=== PATIENT | female | born 1985 | race Caucasian/White ===

== ENCOUNTER 2017-05-30 09:20 | Outpatient (CLI) | payer MEDICAID ==
[2017-05-30 09:36] VITALS: BP 103/57; PULSE 77; RESP 20
[2017-05-30] MEDS ORDERED: PRENAT PO (09:57)
--- NOTE | 2017-05-30 10:16 | RADRPT ---
PROCEDURE: US OB biophysical profile. CLINICAL INDICATION: Evaluate well-being, history of oligohydramnios TECHNIQUE: Multiple sonographic images of the pelvis were obtained. The images were reviewed on a PACS workstation. COMPARISON: None FINDINGS: There is a single viable intrauterine gestation. Oligohydramnios is noted with an HARIS = 6.6 cm. This is below the 2.5 percentile. Cardiac activity is present with 126 beats per minute. There is a vertex presentation. The placenta is anterior. Biophysical profile: movement 2/2 tone 2/2. breathing 2/2 HARIS 2/2 Total 05/04 IMPRESSION: 1. Single intrauterine gestation in cephalic presentation. 2. The biophysical profile is normal measuring 05/04. 3. Anterior placenta without evidence of previa or abruption. 4. Oligohydramnios. The amniotic fluid index is 6.6 cm. This has below the 2.5 percentile. RPTAT:AAJJ Physician Celeste Date Time Electronically viewed and signed by Physician Celeste on 05/30/2017 10:15 /
--- NOTE | 2017-05-30 12:22 | PN ---
Triage Information Date/Time Reason for visit: Oligohydramnios Weeks of Gestation 37 week /Para Diabetes: none Hypertention: none Objective Vital Signs Date Time Temp Pulse Resp B/P Pulse Ox O2 Delivery O2 Flow Rate FiO2 05/30/17 09:36 98.0 77 20 103/57 Room Air Heart Rate: 130's Contractions: None Exam Pelvic examination deferred Results/Medications Imaging Results HARIS 7.7 Assessment/Plan Biophysical profile 05/04 recommended IV hydration 1000 cc repeat For HARIS Notify of the Result MAURA AVINA MD May 30, 2017 12:22
[2017-05-30] MEDS ORDERED: LACTATED RINGER'S 1,000 ML IV ONE (13:00)
--- NOTE | 2017-05-30 15:03 | RADRPT ---
PROCEDURE: US OB. CLINICAL INDICATION: Low HARIS , pain TECHNIQUE: Transabdominal views of the pelvis are available for review. COMPARISON: 05/30/2017 FINDINGS: There is a single intrauterine gestation in a vertex position. The heart rate is noted at 925 bpm. The placenta is anterior. The cord insertion appears unremarkable. There is no evidence of hydronephrosis. The HARIS measures 7.8 cm. RPTAT: AA IMPRESSION: Borderline decreased HARIS. .Kris Penny MD, MD Date Time Electronically viewed and signed by .Kris Penny MD, MD on 05/30/2017 15:03 .S/
--- NOTE | 2017-05-30 16:11 | PN ---
Triage Information Date/Time Reason for visit: Oligohydramnios Weeks of Gestation 37WEEKS 5 DAYS /Para Diabetes: none Hypertention: none Objective Vital Signs Date Time Temp Pulse Resp B/P Pulse Ox O2 Delivery O2 Flow Rate FiO2 05/30/17 09:36 98.0 77 20 103/57 Room Air Heart Rate: 130's Heart Rate Comments CATEGORY 1 FH Contractions: None Assessment/Plan ADVISED HYDRATION ,FHR CATEGORY 1 RETURN AM TO REPEAT HARIS,BBP MAURA AVINA MD May 30, 2017 16:11
== END 2017-05-30 16:15 | disposition home or self-care (01) ==
LOC: OBT 09:20 → L-D 09:22 → OBT 16:15
PROVIDERS: ATTEND Obstetrics & Gynecology
DX: O41.03X0 Oligohydramnios, third trimester, not applicable or unspecified (principal); Z3A.37 37 weeks gestation of pregnancy
CPT/HCPCS: 36415; 76816; 76818; 96360; 96361; J7120; Z7500; G0463

== ENCOUNTER 2017-06-02 09:48 | Inpatient (IN) | payer MEDICAID ==
[~2017-06-02] VITALS: Ht 160 cm; Wt 70.4 kg
[~2017-06-02 09:48] MED LIST: PRENAT PO
[2017-06-02 09:56] VITALS: Ht 160 cm; Wt 70.4 kg
[2017-06-02 09:58] VITALS: BP 114/60; PULSE 93; RESP 18
--- NOTE | 2017-06-02 10:26 | RADRPT ---
PROCEDURE: OB ultrasound for biophysical profile CLINICAL INDICATION: Low HARIS TECHNIQUE: Multiple sonographic images of the pelvis were obtained. Transabdominal view of the gr avid uterus are available for review. The images were reviewed on a PACS workstation. COMPARISON: OB ultrasound 05/31/2017 FINDINGS: breathing movement = 2/2 tone = 2/2 motion = 2/2 HARIS = 2/2 HARIS = 7.0 cm Single live intrauterine with cardiac activity. heart rate equals 128 beats p er minute. Presentation is cephalic. The placenta is anterior, grade II. IMPRESSION: 1. Single viable intrauterine gestation. 2. Biophysical profile = 8/8. 3. HARIS = 7.0 cm, consistent with borderline oligohydramnios. RPTAT: KK .Gael Arizmendi MD, MD Date Time Electronically viewed and signed by .Gael Arizmendi MD, MD on 06/02/2017 10:25 .B/
--- NOTE | 2017-06-02 13:04 | TRIAGE ---
OB Triage Datetime Report Generated by CPN: 06/02/2017 13:03 Datetime: 06/02/2017 09:54 Assessment Type: Triage Maternal Assessment Level of Consciousness: Fully Conscious DTR's/Clonus: DTRs 2+; No Clonus Headache: Denies Blurred Vision: No Respiratory Effort: Unlabored; Regular Rhythm; Equal Expansion Breath Sounds, Left: Clear and Equal Breath Sounds, Right: Clear and Equal Nausea/Vomiting: Denies RUQ Epigastric Pain: Denies Lower Extremities Edema: None Degree: None Upper Extremities Edema: None Degree: None Facial Edema: None Fall Risk Assessment History of Falling: (0) No Secondary Diagnosis: (0) No Ambulatory Aid: (0) Bedrest/Nurse Assist IV Therapy: (0) No Gait: (0) Normal/Bedrest/Immobile Mental Status: (0) Oriented to Own Ability Fall Score: 0 Fall Risk Score Definition: No Risk: No action required Datetime: 06/02/2017 09:53 Time of Arrival: 06/02/2017 09:44 EGA: 37.5 Arrived By: Ambulatory Arrived From: Home Chief Complaint: PT HERE FOR F/U NST/BPP FOR OLIGIO Movement: Present Contractions: Denies/Absent Rupture of Membranes: Denies Vaginal Bleeding: None Vaginal Discharge: Denies Recent Sexual Intercouse: Denies Abdominal Trauma: Not Applicable Patient Complaints: None Time Provider Notified: 06/02/2017 12:00 Provider Notified: FABRICE Initial Plan: NST/BPP Datetime: 06/02/2017 09:50 Monitor Mode: External Monitor Mode: External US Datetime: 05/31/2017 12:06 Labor Evaluation Frequency: 0 Monitor Mode: External Pattern: Normal: <= 5 Contractions in 10 Minutes Resting Tone [place]: Relaxed Heart Rate FHR Baseline Rate: 130 Monitor Mode: External US FHR Baseline Changes: No Baseline Change Variability: Moderate 6-25 bpm Accelerations: 15X15 Decelerations: None Category: Category I Pain Assessment Pain Scale: 0 Pain Presence: None/Denies Pain Type: N/A Datetime: 05/31/2017 11:50 EGA: 37.3 Time Provider Notified: 05/31/2017 12:00 Provider Notified: FABRICE Datetime: 05/31/2017 11:45 Fall Score: 0 Fall Risk Score Definition: No Risk: No action required Datetime: 05/30/2017 09:44 Fall Score: 0 Fall Risk Score Definition: No Risk: No action required Datetime: 05/30/2017 09:43 EGA: 37.2
[2017-06-02] MEDS ORDERED: LACTATED RINGER'S 1,000 ML IV PRN (14:52)
[2017-06-02] MEDS ORDERED: MISOPROSTOL 200 MCG TAB PR PRN (15:00)
[2017-06-02] MEDS ORDERED: IBUPROFEN 600 MG TAB PO PRN (15:00)
[2017-06-02] MEDS ORDERED: METHYLERGONOVINE 0.2 MG INJ IM PRN (15:00)
[2017-06-02] MEDS ORDERED: AMPICILLIN 2 GM/NS (PMX) 100 ML IV ONE (15:00)
[2017-06-02] MEDS ORDERED: OXYTOCIN 30 UNITS/LR 500 ML IV SCH (15:00)
[2017-06-02] MEDS ORDERED: DINOPROSTONE 10 MG VAG SUPP VAG ONE (15:00)
[2017-06-02] MEDS ORDERED: CARBOPROST 250 MCG INJ IM PRN (15:00)
[2017-06-02] MEDS: LACTATED RINGER'S 1,000 ML IV SCH (15:00)
[2017-06-02] MEDS ORDERED: LIDOCAINE 1% (MPF) 30 ML INJ INJ PRN (15:00)
[2017-06-02] MEDS ORDERED: BUTORPHANOL 2 MG INJ IV PRN (15:00)
[2017-06-02] MEDS ORDERED: OXYTOCIN 30 UNITS/LR 500 ML IV PRN (15:00)
[2017-06-02 15:48] LABS: BASOPHILS % 0.4 % (0.0-2.0); EOSINOPHILS # 0.1 10^3/ul (0.0-0.5); EOSINOPHILS % 1.3 % (0.0-7.0); HEMATOCRIT 37.5 % (37.0-47.0); HEMOGLOBIN 12.4 g/dl (12.0-16.0); LYMPHOCYTES # 1.4 10^3/ul (0.8-2.9); LYMPHOCYTES % 16.8 % (15.0-51.0); MEAN CORPUSCULAR HEMOGLOBIN 28.4 pg (29.0-33.0); MEAN CORPUSCULAR HGB CONC 33.1 g/dl (32.0-37.0); MONOCYTE # 0.6 10^3/ul (0.3-0.9); NEUTROPHILS % 73.9 % (39.0-77.0); PLATELET COUNT 176 10^3/UL (140-415); RED BLOOD COUNT 4.36 10^6/ul (4.20-5.40); RED CELL DISTRIBUTION WIDTH 13.9 % (11.5-14.5); WHITE BLOOD COUNT 8.4 10^3/ul (4.8-10.8)
[2017-06-02 16:02] LABS: INR 0.86; PROTIME 11.7 Sec (12.2-14.2); PT RATIO 0.9
--- NOTE | 2017-06-02 17:24 | HP ---
Date/Time of Note Date/Time of Note DATE: 06/02/17 TIME: 17:15 OB - History Hx of Present Free Text/Dictation This is a 21 years old female admitted to the hospital at 37 weeks and 5 days due to low HARIS which barely has been going up with oral and IV hydration but returns lower-level the following day, perinatology consult recommended delivery since her cervix is not favorable pending for Cervidil induction Chief Complaint: 37 weeks and 5 days, low HARIS Estimated Due Date: Jun 23, 2017 : 4 Para: 3 Care: Limited Care Ultrasounds: Normal mid trimester US Obstetrical Complications: None Medical Complications: None Past Family/Social History * Past Medical, Surgical, Family and Obstetric Histories reviewed from chart. Rubella: immune RPR/VDRL: Negative GBS Status: Negative HBsAG: Negative OB Admission Exam Vital Signs Vital Signs Vital Signs Date Time Temp Pulse Resp B/P Pulse Ox O2 Delivery O2 Flow Rate FiO2 06/02/17 09:58 98.6 93 18 114/60 96 Room Air Physical Exam HEENT: WNL Heart: Rhythm Normal Lungs: Clear, Equal Abdomen: WNL Extremities: Normal Cervical Dilatation: None Effacement: 0% Station: -2 Membranes: Intact Heart Rate: 130's Decelerations: No Decelerations Varibility: Moderate Contractions on Admission: None Last 72 hours Lab Results CBC & BMP 06/02/17 15:00 MAURA AVINA MD Jun 02, 2017 17:24
[2017-06-02] MEDS: AMPICILLIN 1 GM/NS (PMX) 50 ML IV SCH ×2 (19:06→23:02)
[2017-06-03] MEDS: LACTATED RINGER'S 1,000 ML IV SCH ×3 (00:51→20:08)
[2017-06-03] MEDS ORDERED: MINERAL OIL LIGHT 10 ML VIAL TOP ONE (01:00)
[2017-06-03] MEDS: AMPICILLIN 1 GM/NS (PMX) 50 ML IV SCH ×5 (03:15→18:26)
[2017-06-03] MEDS ORDERED: DINOPROSTONE 10 MG VAG SUPP VAG ONE ×2 (04:30→09:00)
[2017-06-03] MEDS ORDERED: MINERAL OIL LIGHT 10 ML VIAL TOP PRN (10:30)
[2017-06-03] MEDS ORDERED: FENTAnyl 2MCG/ML-ROPIV 0.2% 100 ML ONE (13:04)
[2017-06-03] MEDS ORDERED: NALOXONE (0.4 MG/ML) INJ IV PRN (13:30)
[2017-06-03] MEDS: FENTAnyl 2MCG/ML-ROPIV 0.2% 100 ML BAG EPI SCH ×2 (13:51→18:30)
[2017-06-03] MEDS ORDERED: OXYTOCIN 30 UNITS/LR 500 ML IV SCH (15:30)
[2017-06-03] MEDS: OXYTOCIN 30 UNITS/LR 500 ML IV SCH ×2 (20:18→22:25)
--- NOTE | 2017-06-03 20:57 | LDN ---
Date/Time of Note Date/Time of Note DATE: 06/03/17 TIME: 20:53 Delivery Summary induced with multiple cervidil and pitocin for low HARIS normal vaginal delivery Weeks of Gestation 37w6d Placenta Delivered: Spontaneously Meconium: none Episiotomy: No Perineal laceration: 0 Anesthesia type: Epidural Estimated blood loss: 200 Sponge & Needle done & correct: Yes All needle counts correct: Yes Any foreign bodies felt in the: No Problems: Infant Delivery Information Sex Sex: male Apgars 1 Minute: 8 5 Minute: 9 Suctioning Nose & mouth suctioned at pipe: Yes Delee suction performed: No Umbilical Cord Umbilical cord with: 3 Vessels Cord presentations: nuchal cord Nuchal cord present X: 1 Cord Blood was obtained: Yes Mother & Baby Disposition Disposition Mom & Baby to Maternity; Good: Yes Mom transferred to: Other () Baby to NICU: No HARMEET MAGDALENO MD Jun 03, 2017 20:57
[2017-06-03 22:30] VITALS: BP 102/58; PULSE 58; RESP 18
[2017-06-03] MEDS ORDERED: OXYTOCIN 30 UNITS/LR 500 ML IV PRN (23:00)
[2017-06-03] MEDS ORDERED: OXYCODONE/ASPIRIN (4.88/325) TAB PO PRN ×2 (23:00)
[2017-06-03] MEDS ORDERED: WITCH HAZEL/GLYCERIN PAD PR PRN (23:00)
[2017-06-03] MEDS ORDERED: ZOLPIDEM 5 MG TAB PO PRN (23:00)
[2017-06-03] MEDS ORDERED: LANOLIN 7 GM TUBE TOP PRN (23:00)
[2017-06-03] MEDS ORDERED: METHYLERGONOVINE 0.2 MG INJ IM PRN (23:00)
[2017-06-03] MEDS ORDERED: BENZOCAINE 20% 56 ML SPRAY TOP PRN (23:00)
[2017-06-03] MEDS ORDERED: MISOPROSTOL 200 MCG TAB PR PRN (23:00)
[2017-06-03] MEDS ORDERED: CARBOPROST 250 MCG INJ IM PRN (23:00)
[2017-06-03] MEDS: IBUPROFEN 600 MG TAB PO SCH (23:50)
[2017-06-04] VITALS: BP 103/55; PULSE 54; RESP 17
[2017-06-04 04:00] VITALS: BP 101/58; PULSE 65; RESP 18
[2017-06-04] MEDS: IBUPROFEN 600 MG TAB PO SCH ×4 (05:55→23:34)
[2017-06-04 07:35] VITALS: BP 107/54; PULSE 53; RESP 18
[2017-06-04] MEDS: SENNA/DOCUSATE NA (8.6MG/50MG) TAB PO SCH ×2 (08:48→20:23)
[2017-06-04 09:54] LABS: BASOPHILS % 0.2 % (0.0-2.0); EOSINOPHILS # 0.1 10^3/ul (0.0-0.5); EOSINOPHILS % 1.2 % (0.0-7.0); HEMATOCRIT 32.3 % (37.0-47.0); HEMOGLOBIN 10.6 g/dl (12.0-16.0); LYMPHOCYTES # 1.3 10^3/ul (0.8-2.9); LYMPHOCYTES % 13.7 % (15.0-51.0); MEAN CORPUSCULAR HEMOGLOBIN 28.6 pg (29.0-33.0); MEAN CORPUSCULAR HGB CONC 32.8 g/dl (32.0-37.0); MEAN CORPUSCULAR VOLUME 87.3 fl (82.0-101.0); MEAN PLATELET VOLUME 12.2 fl (7.4-10.4); MONOCYTE # 0.8 10^3/ul (0.3-0.9); MONOCYTES % 8.5 % (0.0-11.0); NEUTROPHILS % 75.9 % (39.0-77.0); PLATELET COUNT 140 10^3/UL (140-415); WHITE BLOOD COUNT 9.6 10^3/ul (4.8-10.8)
[2017-06-04 11:45] VITALS: BP 92/54; PULSE 57; RESP 19
[2017-06-04 16:00] VITALS: BP 116/58; PULSE 66; RESP 19
--- NOTE | 2017-06-04 16:27 | PN ---
Date/Time of Note Date/Time of Note DATE: 06/04/17 TIME: 16:26 OB Subjective Subjective Subjective Post normal vaginal delivery day 1 Afebrile Vital signs are stable Abdomen soft Uterus firm Lochia normal Extremities normal Laboratory Tests Test 06/04/17 09:34 White Blood Count 9.610^3/ul Red Blood Count 3.7010^6/ul Hemoglobin 10.6g/dl Hematocrit 32.3% Mean Corpuscular Volume 87.3fl Mean Corpuscular Hemoglobin 28.6pg Mean Corpuscular Hemoglobin Concent 32.8g/dl Red Cell Distribution Width 14.0% Platelet Count 60612^3/UL Mean Platelet Volume 12.2fl Neutrophils % 75.9% Lymphocytes % 13.7% Monocytes % 8.5% Eosinophils % 1.2% Basophils % 0.2% Nucleated Red Blood Cells % 0.0/100WBC Neutrophils # (Manual) 7.310^3/ul Lymphocytes # 1.310^3/ul Monocytes # 0.810^3/ul Eosinophils # 0.110^3/ul Basophils # 0.010^3/ul Nucleated Red Blood Cells # 0.010^3/ul Current Medications Medications (Trade) Dose Ordered Sig/Maria Isabel Route PRN Reason Start Time Stop Time Status Last Admin Dose Admin Lactated Ringer's 1,000 ml @ 125 mls/hr Q8H IV 06/02/17 14:52 06/03/17 22:41 DC 06/03/17 10:30 Ampicillin 100 ml @ 100 mls/hr ONCE ONCE IV 06/02/17 15:00 06/02/17 15:59 DC 06/02/17 15:19 Ampicillin (Ampicillin 1 Gm/ NS (Pmx)) 50 ml @ 100 mls/hr Q4H IV 06/02/17 18:30 06/03/17 22:41 DC 06/03/17 18:26 Dinoprostone (Cervidil Vaginal Supp) 10 mg ONCE ONCE VAG 06/02/17 15:00 06/02/17 15:01 DC 06/02/17 15:19 Butorphanol Tartrate (Stadol) 2 mg Q2H PRN IV PAIN 06/02/17 15:00 06/03/17 22:42 DC 06/03/17 10:22 Lidocaine 30 ml 30 ml ONCE PRN INJ EPISIOTOMY/TEARING 06/02/17 15:00 06/03/17 22:42 DC Oxytocin/Lactated Ringer's 500 ml @ 125 mls/hr ONCE -MAY REPEAT X1 IV 06/02/17 15:00 06/03/17 22:42 DC 06/03/17 20:07 Oxytocin/Lactated Ringer's 500 ml @ 125 mls/hr ONCE IV 06/02/17 15:00 06/03/17 22:41 DC 06/03/17 22:25 Ibuprofen 600 mg 600 mg ONCE PRN PO Mild Pain (Pain Score 1-3) 06/02/17 15:00 06/03/17 22:42 DC Lactated Ringer's 1,000 ml @ 2,000 mls/hr Q30M PRN IV PRE-EPIDURAL BOLUS 06/02/17 14:52 06/03/17 22:41 DC 06/03/17 11:22 Oxytocin/Lactated Ringer's 500 ml @ 0 mls/hr ONCE PRN IV For Hemorrhage Management 06/02/17 15:00 06/03/17 22:41 DC Methylergonovine Maleate (Methergine) 0.2 mg ONCE PRN IM VAGINAL BLEEDING 06/02/17 15:00 06/03/17 22:42 DC Carboprost Tromethamine (Hemabate) 250 mcg ONCE PRN IM VAGINAL BLEEDING 06/02/17 15:00 06/03/17 22:42 DC Misoprostol (Cytotec) 1,000 mcg ONCE PRN [place] VAGINAL BLEEDING 06/02/17 15:00 06/03/17 22:42 DC Mineral Oil (Muri-Lube) 20 ml ONCE ONCE TOP 06/03/17 01:00 06/03/17 01:01 DC Dinoprostone (Cervidil Vaginal Supp) 10 mg ONCE ONCE VAG 06/03/17 04:30 06/03/17 04:31 DC 06/03/17 04:27 Dinoprostone (Cervidil Vaginal Supp) 10 mg ONCE ONCE VAG 06/03/17 09:00 06/03/17 09:01 DC 06/03/17 09:42 Mineral Oil 30 ml 30 ml ONCE PRN TOP DELIVERY 06/03/17 10:30 06/03/17 22:42 DC Fentanyl/ Ropivacaine 100 ml @ STK-MED ONCE .ROUTE 06/03/17 13:04 06/03/17 13:05 DC Naloxone HCl (Narcan) 0.2 mg Q2M PRN IV FOR RESP RATE 8 OR LESS 06/03/17 13:30 06/03/17 22:42 DC Fentanyl/ Ropivacaine 100 ml 100 ml EPIDURAL (PCEA) EPI 06/03/17 13:30 06/03/17 22:42 DC 06/03/17 18:30 Oxytocin/Lactated Ringer's 500 ml @ 0 mls/hr Q0M IV 06/03/17 15:30 06/03/17 22:42 DC 06/03/17 16:36 Ibuprofen (Motrin) 600 mg Q6 PO 06/04/17 00:00 06/04/17 11:35 Oxycodone/Aspirin (Percodan) 1 tab Q3H PRN PO PAIN LEVEL 1-5 06/03/17 23:00 Oxycodone/Aspirin (Percodan) 2 tab Q3H PRN PO PAIN LEVEL 6-10 06/03/17 23:00 Zolpidem Tartrate (Ambien) 5 mg QHS PRN PO INSOMNIA 06/03/17 23:00 Senna/Docusate Sodium (Senokot-S) 1 tab BID PO 06/04/17 09:00 06/04/17 08:48 Witch Paz/ Glycerin (Tucks Pads) 1 pad BEDSIDE MEDICATION PRN [place] HEMORRHOID/EPISIOTMY PAIN 06/03/17 23:00 06/03/17 23:50 Benzocaine (Dermoplast [place]) 1 spray BEDSIDE MEDICATION PRN TOP HEMORRHOID/EPISIOTMY PAIN 06/03/17 23:00 06/03/17 23:49 Lanolin (Mwv-X-Muhxat) 1 applic BEDSIDE MEDICATION PRN TOP BEDSIDE FOR PAULINO TO NIPPLES 06/03/17 23:00 06/03/17 23:50 Diphtheria/ Tetanus/Acell Pertussis 0.5 ml 0.5 ml ONCE ONCE IM* 06/05/17 09:00 06/05/17 09:01 Oxytocin/Lactated Ringer's 500 ml @ 0 mls/hr ONCE PRN IV For Hemorrhage Management 06/03/17 23:00 Methylergonovine Maleate (Methergine) 0.2 mg ONCE PRN IM VAGINAL BLEEDING 06/03/17 23:00 Carboprost Tromethamine (Hemabate) 250 mcg ONCE PRN IM VAGINAL BLEEDING 06/03/17 23:00 Misoprostol (Cytotec) 1,000 mcg ONCE PRN [place] VAGINAL BLEEDING 06/03/17 23:00 MAURA AVINA MD Jun 04, 2017 16:27
[2017-06-04 20:00] VITALS: BP 92/57; PULSE 58; RESP 18
[2017-06-05 04:00] VITALS: BP 96/56; PULSE 68; RESP 18
[2017-06-05] MEDS: IBUPROFEN 600 MG TAB PO SCH ×3 (05:48→17:40)
[2017-06-05 08:00] VITALS: BP 109/52; PULSE 49; RESP 19
[2017-06-05] MEDS ORDERED: DIPHTH/TET/ACEL PERTUSS (ADULT) 0.5 ML VIAL IM* ONE (09:00)
[2017-06-05] MEDS: SENNA/DOCUSATE NA (8.6MG/50MG) TAB PO SCH (09:18)
--- NOTE | 2017-06-05 12:27 | DS ---
Date/Time of Note Date/Time of Note DATE: 06/05/17 TIME: 12:25 Discharge Summary Admission/Discharge Info Admit Date/Time Jun 02, 2017 at 12:40 Discharge Date/Time June 05, 2017 at 12 noon Discharge Diagnosis Post normal vaginal delivery day 2 Patient Condition: Good Procedures Normal vaginal delivery Hx of Present Illness Term Hospital Course Satisfactory uneventful Home Meds Reported Medications Multivit/Min/Fol Ac/Iron/Pren* ( S*) 1 Tab Tab, 1 TAB PO DAILY, TAB 05/30/17 Follow-up Plan instructions given recommended to make appointment to be seen at the clinic in 2 weeks Primary Care Provider Care Physician No Primary Time spent on discharge: < 30 minutes MAURA AVINA MD Jun 05, 2017 12:27
[2017-06-05 16:10] VITALS: BP 111/50; PULSE 52; RESP 20
== END 2017-06-05 20:17 | disposition home or self-care (01) | DRG 775 ==
LOC: L-D 09:48 → OBT 09:48 → L-D 12:40 → OBT 13:16 → PP1 06-03 22:30
PROVIDERS: ADMIT Obstetrics & Gynecology; ATTEND Obstetrics & Gynecology
PROC: 10E0XZZ Delivery of Products of Conception, External Approach (ICD-10-PCS; principal; 2017-06-03)
PROC: 3E033VJ Introduction of Other Hormone into Peripheral Vein, Percutaneous Approach (ICD-10-PCS; 2017-06-03)
DX: O69.81X0 Labor and delivery complicated by cord around neck, without compression, not applicable or unspecified (principal); Z37.0 Single live birth; Z3A.37 37 weeks gestation of pregnancy
CPT/HCPCS: 62319; 76818; 85025; 85610; 85730; 86592; 86900; 86901; 90715; G0463; J0290; J0595; J2590; J3010; J7120